=== PATIENT | male | born 1990 | race Caucasian/White ===

== ENCOUNTER 2018-03-06 11:21 | Emergency (ER) | payer BC ==
[~2018-03-06] VITALS: Ht 188 cm; Wt 128.2 kg
[2018-03-06 11:25] VITALS: TEMP 98.3
[2018-03-06 12:49] LABS: COLLECTION METHOD CLEAN CATCH
[2018-03-06 12:55] LABS: PH 6 (5-8); SQUAMOUS EPITHELIAL None Seen /hpf; URINE APPEARANCE Clear; URINE BACTERIA None Seen /hpf; URINE BILIRUBIN Negative (NEGATIVE); URINE BLOOD 1+ (NEGATIVE); URINE COLOR Straw; URINE GLUCOSE Negative (NEGATIVE); URINE KETONE Negative (NEGATIVE); URINE LEUKOCYTE ESTERASE Negative (NEGATIVE); URINE NITRATE Negative (NEGATIVE); URINE PROTEIN(semi-quant) Negative (NEGATIVE); URINE RBC None Seen /hpf; URINE UROBILINOGEN Negative (NEGATIVE)
[2018-03-06 13:06] LABS: BASO # 0.1 (0.0-0.2); BASO % 1.1 % (0.0-2.0); EOS # 0.2 (0.0-0.7); EOS % 2.9 % (0-4.0); GRAN # 3.5 (1.4-6.5); GRAN % 56.9 % (42.2-75.2); HEMATOCRIT 44.1 % (42.0-52.0); HEMOGLOBIN 14.8 g/dl (13.5-18.0); LYMPH # 1.9 (1.2-3.4); LYMPH % 31.2 % (20.0-51.0); MEAN CELL VOLUME 84 fl (80.0-100.0); MEAN CORPUSCULAR HEMOGLOBIN 28 pg (27.0-31.0); MEAN CORPUSCULAR HGB CONC 34 g/dl (33.0-37.0); MEAN PLATELET VOLUME 9.8 fl (7.4-10.4); MONO # 0.5 (0.1-0.6); MONO % 7.4 % (1.7-9.3); PLATELET COUNT 311 K/mm3 (130-400); RED BLOOD COUNT 5.24 M/mm3 (4.20-5.60); REDCELL DISTRIBUTION WIDTH-CV 12.1 % (11.5-14.5)
[2018-03-06 13:16] LABS: ALBUMIN 4.2 gm/dL (3.5-5.0); BILIRUBIN,TOTAL 0.7 mg/dL (0.0-1.0); CREATININE, serum 1.01 mg/dL (0.66-1.25); TOTAL PROTEIN 7.7 gm/dL (6.4-8.2)
[2018-03-06 13:46] LABS: THYROID STIMULATING HORMONE 0.729 uIU/mL (0.465-4.680)
[2018-03-06 14:33] VITALS: BP 131/99; PULSE 58
== END 2018-03-06 14:34 | disposition home or self-care (01) ==
LOC: COL.ER 11:21
DX: R53.83 Other fatigue (principal); R53.81 Other malaise; Z87.891 Personal history of nicotine dependence